=== PATIENT | male | born 1990 | race Caucasian/White ===

== ENCOUNTER 2018-05-03 10:50 | Observation (INO) ==
[2018-05-03] MEDS ORDERED: OXYCODONE Oral CONC 10 MG/0.5 ML ORAL.SYG SL PRN ×2 (12:01→22:21)
[2018-05-03] MEDS ORDERED: Isovue-370 500 ML INFUS..BTL IV ONE (12:01)
[2018-05-03] MEDS ORDERED: Ondansetron 4 MG/2 ML VIAL IVP PRN ×2 (12:01→22:21)
[2018-05-03] MEDS ORDERED: Pantoprazole 40 MG VIAL IVP SCH (12:15)
[2018-05-03] MEDS ORDERED: 0.9 % Sodium Chloride 1,000 ML IVC SCH ×2 (12:15→22:21)
[2018-05-03 12:36] LABS: Basophils % 0.6 %; Eosinophils # 0.2 K/mcL (0.0-0.6); Eosinophils % 3.2 %; Hematocrit 38.4 % (37.5-50.1); Hemoglobin 13.3 g/dL (12.9-16.9); Immature Granulocytes % 0.3 % (0-4); Lymphocytes # 1.6 K/mcL (0.6-4.6); Lymphocytes % 23.8 %; Mean Corpuscular HGB Conc 34.6 g/dL (31.6-35.5); Mean Corpuscular Hemoglobin 29.2 pg (28.0-33.3); Mean Corpuscular Volume 84.4 fL (83.0-100.0); Monocytes # 0.5 K/mcL (0.0-1.3); Monocytes % 6.5 %; Neutrophils # 4.5 K/mcL (1.6-8.9); Platelet Count 250 K/mcL (140-400); Red Blood Count 4.55 M/mcL (4.19-5.50); Red Cell Distribution Width 13.1 % (11.5-14.5); Segmented Neutrophils % 65.6 %
[2018-05-03 12:54] LABS: BUN/Creatinine Ratio 13 (6-26); Blood Urea Nitrogen 14 mg/dL (6-20); Calcium 9.5 mg/dL (8.6-10.3); Carbon Dioxide 27 mEq/L (23-29); Chloride 108 mEq/L (98-107); Glucose 101 mg/dL (70-105); Osmolality,Calculated 291 (280-300); Potassium 4.1 mEq/L (3.5-5.1); Sodium 140 mEq/L (136-145); eGFR For African Americans > 60 (> 60); eGFR For Non-African Americans > 60 (> 60)
--- NOTE | 2018-05-03 19:24 | Anesthesia Evaluation PreOp ---
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 HX Other Medical History: Other (non-healing perineal abcess s/p I&D 2013) Anesthesia History: No Prior Anesthetic Complications, Past Anesthesia ( Perineal abcess I&D 2013, T&a, wisdom teeth, Corrective eye surgery, R-shoulder labral repair) Alcohol Use: rarely Drug use: none Medications and Allergies No Known Home Drugs 05/03/18 [History] 3 Allergy/AdvReac Type Severity Reaction Status Date / Time No Known Allergies Allergy Verified 05/03/18 12:41 - Meds/Allergy Pre-op Review Medications Reviewed: Yes Allergies Reviewed: Yes Beta Blockers on Current Med List: No Anesthesia Results - Labs 05/03/18 12:21 05/03/18 12:21 Laboratory Results WBC 6.9 K/mcL (4.3-11.1) 05/03/18 12:21 RBC 4.55 M/mcL (4.19-5.50) 05/03/18 12:21 Hgb 13.3 g/dL (12.9-16.9) 05/03/18 12:21 Hct 38.4 % (37.5-50.1) 05/03/18 12:21 MCV 84.4 fL (83.0-100.0) 05/03/18 12:21 MCH 29.2 pg (28.0-33.3) 05/03/18 12:21 MCHC 34.6 g/dL (31.6-35.5) 05/03/18 12:21 RDW 13.1 % (11.5-14.5) 05/03/18 12:21 Plt Count 250 K/mcL (140-400) 05/03/18 12:21 MPV 9.0 fL (9.4-12.4) L 05/03/18 12:21 Immature Gran % 0.3 % (0-4) 05/03/18 12:21 Seg Neutrophils % 65.6 % 05/03/18 12:21 Lymphocytes % 23.8 % 05/03/18 12:21 Monocytes % 6.5 % 05/03/18 12:21 Eosinophils % 3.2 % 05/03/18 12:21 Basophils % 0.6 % 05/03/18 12:21 Neutrophils # 4.5 K/mcL (1.6-8.9) 05/03/18 12:21 Lymphocytes # 1.6 K/mcL (0.6-4.6) 05/03/18 12:21 Monocytes # 0.5 K/mcL (0.0-1.3) 05/03/18 12:21 Eosinophils # 0.2 K/mcL (0.0-0.6) 05/03/18 12:21 Basophils # 0.0 K/mcL (0.0-0.2) 05/03/18 12:21 Sodium 140 mEq/L (136-145) 05/03/18 12:21 Potassium 4.1 mEq/L (3.5-5.1) 05/03/18 12:21 Chloride 108 mEq/L (98-107) H 05/03/18 12:21 Carbon Dioxide 27 mEq/L (23-29) 05/03/18 12:21 BUN 14 mg/dL (6-20) 05/03/18 12:21 Creatinine 1.06 mg/dL (0.70-1.30) 05/03/18 12:21 Est GFR ( Amer) > 60 (> 60) 05/03/18 12:21 Est GFR (Non-Af Amer) > 60 (> 60) 05/03/18 12:21 BUN/Creatinine Ratio 13 (6-26) 05/03/18 12:21 Glucose 101 mg/dL (70-105) 05/03/18 12:21 Calculated Osmolality 291 (280-300) 05/03/18 12:21 Calcium 9.5 mg/dL (8.6-10.3) 05/03/18 12:21 Impressions Abdomen/Pelvis CT 05/03/18 14:15 IMPRESSION: 1. No evidence of a perianal abscess. 2. No acute findings in the abdomen or pelvis. D/ / 05/03/2018 15:24:18 Derik Lyle MD / bcarter Interpreting Provider: Derik Lyle MD Anesthesia Exam Vital Signs Temp Pulse Resp BP Pulse Ox 05/03/18 18:54 98.4 F 57 14 113/73 98 05/03/18 15:16 98.2 F 61 18 97/66 97 05/03/18 12:26 98.4 F 61 16 112/80 97 Intake and Output 05/03/18 05/03/18 05/03/18 07:59 15:59 23:59 Intake Total 0 / 0 Output Total 375 / 375 Balance -375 / -375 Intake: Oral 0 / 0 Output: Urine 375 / 375 Other: Meal NPO Weight 131.542 kg Patient Weight 05/03/18 23:59 Weight 131.542 kg Height: 6'4" Weight: 290# BMI = 35 NPO (# of Hours): >8HRS - HEENT Pupil (Motor): Pupils equal, EOMI Mallampati: II Teeth: Normal Oral Opening: Greater than 3 - BROADCAST MAINTENANCE ENGINEER LOC: Oriented BROADCAST MAINTENANCE ENGINEER Motor: Normal RUE, Normal LUE, Normal RLE, Normal LLE, Normal Face BROADCAST MAINTENANCE ENGINEER Sensory: Normal: RUE, LUE, RLE, LLE, Face - Cardiac Rhythm: Regular Murmur: None - Pulmonary Breath Sounds: bilateral Clear Respiratory Effort: Symmetrical Anesthesia Assess/Plan ASA Score: 2 Modified [place] Scale for Level of Consciousness: Cooperative, oriented, and tranquil Anesthetic Plan: General Monitoring Plan: Standard Monitors Recovery Plan: PACU Anes Supervising Prov Stmt: PT seen/evaluated, R&B Discussed, questions answered and consent obtained. Huey Willson MD
[2018-05-03] MEDS ORDERED: Lidocaine -MPF 2% 2 ML VIAL ONE (19:37)
[2018-05-03] MEDS ORDERED: *HR* Propofol 200 MG/20 ML VIAL IVP ONE (19:38)
[2018-05-03] MEDS ORDERED: *HR* FentaNYL (PF) 100 MCG/2 ML VIAL ONE (19:38)
[2018-05-03] MEDS ORDERED: *HR* Midazolam HCl 2 MG/2 ML VIAL ONE (19:38)
[2018-05-03] MEDS ORDERED: Lidocaine Jelly 6ml 1 APPL/6 ML JEL.PF.APP ONE (19:53)
[2018-05-03] MEDS ORDERED: Metoclopramide 10 MG/2 ML VIAL ONE (20:00)
[2018-05-03] MEDS ORDERED: Famotidine 20 MG/2 ML VIAL ONE (20:00)
[2018-05-03] MEDS ORDERED: Acetaminophen IV 1,000 MG/100 ML INFUS..BTL ONE (20:12)
[2018-05-03] MEDS ORDERED: MetroNIDAZOLE 500 MG/100 ML 500 MG/100 ML BAG IVPB ONE (20:19)
[2018-05-03] MEDS ORDERED: Bupivacaine-MPF 0.25% 10 ML VIAL ONE (20:50)
[2018-05-03] MEDS ORDERED: Ketorolac 30 MG/ML VIAL ONE (21:24)
[2018-05-03] MEDS ORDERED: Ondansetron 4 MG/2 ML VIAL ONE (21:25)
[2018-05-03] MEDS ORDERED: Dexamethasone 4 MG/ML VIAL ONE (21:25)
--- NOTE | 2018-05-03 21:58 | Operative Note ---
Date of procedure: 05/03/18 Pre-op diagnosis: perineal wound Post-op diagnosis: same Procedure: Rectal exam under anesthesia, rigid sigmoidoscope, opening of small perineal cavity, excisional debridement Implants: iodoform guaze, 1'' Complications: none Anesthesia: GETA Local Anesthetics: 0.5% Sensorcaine HCL SubQ (cc) Surgeon: Herman Ho Was there an plant attendant or assistant operator present: No Estimated blood loss (cc): 15 Specimen: perineal wound Condition: stable Disposition: PACU Procedure in Detail: Patient was brought into the operating room suite. Underwent smooth induction of anesthesia. placed in the lithotomy position. He was prepped and draped in the usual fashion. A timeout was held identifying correct patient, pathology, procedure, and physician. I started by performing a rectal exam. I was able to appreciate anal fissures in both the posterior and anterior position. Nothing in either of the lateral positions. I was able to appreciate the wound in the perineal region. it had a slightly raised, red plaque appearance to it. I then was able to appreciate an opening right in the middle of the reddened, plaque region. I was easily able to proble this area and open a cavity that opened about 4cm deep. I opened the skin superiorly to expose the tract. I was not able to appreciate any necrotic tissue, no retained foreign body, no fistulous tracts. I then performed a rigid sigmoidosocpy. There were no abnormalities appreciated. I then filled the cavity in the perineal region with saline. There was no gross evidence of any communication to other parts of the GI tract or anal canal. I also took an excision biopsy of the reddened plaque in the perineum. It should be stated that this red plaque did bleed easily without minimal contact. Al bleeding was controlled with electrocautery and pressure. I then packed the wound with iodoform guaze and concluded the procedure. The patient tolerated the procedure well and was escorted back to PACu in stable condition.
[2018-05-04] MEDS ORDERED: Pantoprazole 40 MG VIAL IVP SCH (06:30)
[2018-05-04 11:07] VITALS: BP 94/60
--- NOTE | 2018-05-04 11:50 | Discharge Summary ---
Orders not resulted at time of discharge: Pending orders 05/03/18 21:01 Surgical Pathology [PTH] Routine Date of Encounter: 05/04/18 Time of Encounter: 11:30 - Discharge Diagnosis (1) Non-healing surgical wound Priority: Primary Status: Acute Qualifiers: Encounter type: initial encounter Qualified Code(s): T81.89XA - Other complications of procedures, not elsewhere classified, initial encounter General Surgery Exam Initial Vital Signs Temp Pulse Resp BP Pulse Ox 98.4 F 61 16 112/80 97 05/03/18 12:26 05/03/18 12:26 05/03/18 12:05/03/18 12:05/03/18 12:26 - General physical appearance well developed, well nourished, no distress - Eyes normal ocular movement - ENT normal mucosa, atraumatic, normocephalic - Neck trachea midline - Respiratory normal expansion, normal respiratory effort, clear to auscultation - Cardiovascular Cardiovascular exam: Present: RRR - Abdomen Abdomen general surgery: Present: bowel sounds present, soft, non tender - Incision Incision: Present: serosanguinous (Perianal wound open with moderate amount of serousang. drainage noted; plan to re-pack today) - Integumentary Integumentary general surgery: Present: warm and dry - Neurologic Present: CN 2-12 grossly intact - Musculoskeletal Present: normal gait, normal posture - Psychiatric Psychiatric general surgery: Present: appropriate, oriented to person, oriented to place, oriented to time, speech is normal, memory intact - Hospital Course Hospital course: Mr. Mcnair is a 27 year old male with a history of a non-healing surgical wound since 2013. Mr. Mcnair is a 27 year old male who was seen in the wound care center by Dr. Ho on 05/03/18 for a non-healing surgical wound since 2013. The patient was admitted to the hospital for further work-up and treatment. He was taken to the operating room urgently for an exam under anesthesia, opening of perianal cavity and excisional debridement of perianal cavity. On POD #1, the patient is doing well. We will begin discharge planning to home. The patient's will complete daily packing. He will return to the office in [address] Ho for wound check. - Time Spent with Patient Total time spent providing and/or coordinating discharge services: Less than 30 minutes - Discharge Medications Prescriptions: Ibuprofen [Motrin] 800 mg PO Q8HR #50 tablet Docusate [Colace] 100 mg PO BID PRN #30 capsule PRN Reason: Constipation Home Medications: Docusate [Colace] 100 mg PO BID PRN #30 capsule 05/04/18 [Rx] Ibuprofen [Motrin] 800 mg PO Q8HR #50 tablet 05/04/18 [Rx] Allergies/Adverse Reactions: 3 Allergy/AdvReac Type Severity Reaction Status Date / Time No Known Allergies Allergy Verified 05/03/18 12:41 Date of admission: 05/03/18 11:02 Primary care physician: Celeste Cohen CNP Discharging clinician: Mary Ellen Blair Anticipated date of discharge: 05/04/18 Labs on day of discharge: Labs from last 24 hours 05/03/18 05/03/18 12:21 12:21 WBC 6.9 RBC 4.55 Hgb 13.3 Hct 38.4 MCV 84.4 MCH 29.2 MCHC 34.6 RDW 13.1 Plt Count 250 MPV 9.0 L Immature Gran % 0.3 Seg Neutrophils % 65.6 Lymphocytes % 23.8 Monocytes % 6.5 Eosinophils % 3.2 Basophils % 0.6 Neutrophils # 4.5 Lymphocytes # 1.6 Monocytes # 0.5 Eosinophils # 0.2 Basophils # 0.0 Sodium 140 Potassium 4.1 Chloride 108 H Carbon Dioxide 27 BUN 14 Creatinine 1.06 Est GFR ( Amer) > 60 Est GFR (Non-Af Amer) > 60 BUN/Creatinine Ratio 13 Glucose 101 Calculated Osmolality 291 Calcium 9.5 - Impressions ITS Impressions Abdomen/Pelvis CT 05/03/18 14:15 IMPRESSION: 1. No evidence of a perianal abscess. 2. No acute findings in the abdomen or pelvis. D/ / 05/03/2018 15:24:18 Derik Lyle MD / bcarter Interpreting Provider: Derik Lyle MD - Patient Status Disposition: Home, Self-Care Condition: Good Functional capacity at discharge: independent ambulation Overall status at discharge: patient is progressing back to baseline - Discharge Instructions Follow Up With: Celeste Cohen CNP [Primary Care Provider] - Herman Ho MD [Non-Partnered Physician] - 05/11/18 2:05 pm (surgery follow- up) Forms: Work/School Release Additional Instructions: Wound care- remove packing, cleanse with soap and water in the shower daily, pack with 1/2 inch plain packing, cover with dry dressing and tape to secure. Change daily and as needed if soiled. - Diet and Activity Activity: increase activity as tolerated Diet: advance to your usual diet - Attending Attestation For this encounter, I have reviewed the [employer] OPERATIONS CONSULTANT or PA documentation, treatment plan, and medical decision making; and I have had face to face time with this patient.
== END 2018-05-04 12:51 | disposition home or self-care (01) ==
LOC: 3ANU
PROVIDERS: ADMIT Surgery; ATTEND Surgery

== ENCOUNTER 2019-08-21 12:36 | Observation (INO) ==
[2019-08-21] MEDS ORDERED: 0.9 % Sodium Chloride 1,000 ML IVC ONE (12:54)
[2019-08-21 13:37] LABS: Basophils # 0.1 K/mcL (0.0-0.2); Basophils % 0.5 %; Eosinophils # 0.2 K/mcL (0.0-0.6); Eosinophils % 1.7 %; Hematocrit 41.2 % (37.5-50.1); Hemoglobin 14.4 g/dL (12.9-16.9); Immature Granulocytes % 0.2 % (0-4); Lymphocytes # 1.8 K/mcL (0.6-4.6); Lymphocytes % 19.6 %; Mean Corpuscular Volume 82.9 fL (83.0-100.0); Monocytes # 0.5 K/mcL (0.0-1.3); Monocytes % 5.2 %; Neutrophils # 6.7 K/mcL (1.6-8.9); Platelet Count 325 K/mcL (140-400); Red Blood Count 4.97 M/mcL (4.19-5.50); Red Cell Distribution Width 12.6 % (11.5-14.5); Segmented Neutrophils % 72.8 %; White Blood Count 9.3 K/mcL (4.3-11.1)
[2019-08-21 13:45] LABS: INR 1.1
[2019-08-21 13:47] LABS: Activated Partial Thrombo Time 40.5 Seconds (26.0-36.0)
[2019-08-21 14:07] LABS: BUN/Creatinine Ratio 14 (6-26); Blood Urea Nitrogen 13 mg/dL (6-20); Calcium 9.3 mg/dL (8.6-10.3); Carbon Dioxide 24 mEq/L (23-29); Chloride 106 mEq/L (98-107); Glucose 142 mg/dL (70-105); Magnesium 1.8 mg/dL (1.6-2.6); Osmolality,Calculated 297 (280-300); Potassium 3.9 mEq/L (3.5-5.1); Sodium 142 mEq/L (136-145); Thyroid Stimulating Hormone 2.178 mcIU/mL (0.340-5.600); Troponin I < 0.03 ng/mL (< 0.04); eGFR For African Americans > 60 (> 60); eGFR For Non-African Americans > 60 (> 60)
[2019-08-21] MEDS ORDERED: Isovue-370 500 ML BOTTLE IVP ONE (14:48)
[2019-08-21 16:14] LABS: Amphetamine Screen,Urine Negative ng/mL (Cutoff=1000); Barbiturate Screen,Urine Negative ng/mL (Cutoff=200); Benzodiazepines Screen,Urine Negative ng/mL (Cutoff=200); Cannabinoid Screen,Urine Negative ng/mL (Cutoff = 50); Cocaine Screen,Urine Negative ng/mL (Cutoff= 300); Opiate Screen,Urine Negative ng/mL (Cutoff=300); Phencyclidine Screen,Urine Negative ng/mL (Cutoff=25)
[2019-08-21] MEDS ORDERED: Naloxone 0.4 MG/ML INJ IVP PRN (17:05)
[2019-08-21 18:18] LABS: Estimated Average Glucose 111 mg/dl
[2019-08-21] MEDS: *HR* Heparin 5,000 UNIT/ML VIAL SQ SCH (18:29)
[2019-08-22 05:45] LABS: Hematocrit 41.8 % (37.5-50.1); Hemoglobin 13.7 g/dL (12.9-16.9); Mean Corpuscular HGB Conc 32.8 g/dL (31.6-35.5); Mean Corpuscular Hemoglobin 28.5 pg (28.0-33.3); Mean Corpuscular Volume 87.1 fL (83.0-100.0); Mean Platelet Volume 9.1 fL (9.4-12.4); Platelet Count 269 K/mcL (140-400); Red Cell Distribution Width 12.7 % (11.5-14.5); White Blood Count 7.6 K/mcL (4.3-11.1)
[2019-08-22 06:06] LABS: BUN/Creatinine Ratio 12 (6-26); Blood Urea Nitrogen 12 mg/dL (6-20); Calcium 9.1 mg/dL (8.6-10.3); Carbon Dioxide 27 mEq/L (23-29); Chloride 106 mEq/L (98-107); Glucose 98 mg/dL (70-105); Osmolality,Calculated 296 (280-300); Sodium 143 mEq/L (136-145); eGFR For African Americans > 60 (> 60); eGFR For Non-African Americans > 60 (> 60)
[2019-08-22] MEDS: *HR* Heparin 5,000 UNIT/ML VIAL SQ SCH (06:19)
[2019-08-22] MEDS ORDERED: Aspirin 81 MG TAB.CHEW PO SCH (11:30)
[2019-08-22] MEDS ORDERED: Diltiazem CD (24hr) 120 MG CAPSULE PO SCH (11:30)
[2019-08-22 13:33] VITALS: BP 111/76
== END 2019-08-22 14:31 | disposition home or self-care (01) ==
LOC: 3BNU 12:36 → EMEROOARM 12:36 → SUATTDRO 15:35 → 3BNU 16:32
PROVIDERS: ADMIT Internal Medicine; ATTEND Internal Medicine